=== PATIENT | female | born 1985 ===

== ENCOUNTER 2018-11-08 18:43 | Emergency (ER) | payer MEDICAID ==
[2018-11-08 19:08] VITALS: BP 130/82; PULSE 98; RESP 22; TEMP 98; O2SAT 99
--- NOTE | 2018-11-08 20:18 | C.PDOC ---
History Of Present Illness 33 y/o female presents to the ED for evaluation of cough, runny nose, body aches, nausea, and subjective fever since yesterday. She reports +sick contact in a relative recently diagnosed with flu, as well as child in the ER with same symptoms. No vomiting or diarrhea. No recent travel. LMP was 2 weeks ago. Time Seen by Provider: 11/08/18 19:25 Chief Complaint (Nursing): GI Problem History Per: Patient History/Exam Limitations: no limitations Onset/Duration Of Symptoms: Days (x 2) Current Symptoms Are (Timing): Still Present Location Of Pain: Diffuse Myalgias Sick Contacts (Context): Family Member(s) Associated Symptoms: Fever, Cough, Myalgias, Nasal Congestion, Nausea Past Medical History Reviewed: Historical Data, Nursing Documentation, Vital Signs Vital Signs: Last Vital Signs Temp 98 F 11/08/18 19:03 Pulse 98 H 11/08/18 19:03 Resp 22 11/08/18 19:03 BP 130/82 11/08/18 19:03 Pulse Ox 99 11/08/18 19:03 - Medical History PMH: No Chronic Diseases Surgical History: No Surg Hx Family History: States: Unknown Family Hx - Social History Hx Tobacco Use: No Hx Alcohol Use: No Hx Substance Use: No - Immunization History Hx Tetanus Toxoid Vaccination: No Hx Influenza Vaccination: No Hx Pneumococcal Vaccination: No Review Of Systems Constitutional: Positive for: Fever, Other (Diffuse body aches) ENT: Positive for: Nose Discharge Cardiovascular: Negative for: Chest Pain Respiratory: Positive for: Cough. Negative for: Shortness of Breath Gastrointestinal: Positive for: Nausea. Negative for: Vomiting, Abdominal Pain, Diarrhea Genitourinary: Negative for: Dysuria, Frequency Musculoskeletal: Negative for: Back Pain Skin: Negative for: Rash Neurological: Negative for: Weakness, Headache Physical Exam - Physical Exam Appears: Non-toxic, No Acute Distress Skin: Normal Color, Warm, Dry Head: Atraumatic, Normacephalic Eye(s): bilateral: Normal Inspection, PERRL, EOMI Ear(s): Bilateral: Normal Oral Mucosa: Moist Throat: Normal (Oropharynx clear), No Erythema, No Exudate Neck: Normal ROM, Supple Chest: Symmetrical Cardiovascular: Rhythm Regular, No Murmur Respiratory: Normal Breath Sounds, No Accessory Muscle Use, No Rhonchi, No Wheezing Gastrointestinal/Abdominal: Soft, No Tenderness, No Distention, No Guarding Extremity: Bilateral: Atraumatic, Normal ROM Neurological/Psych: Oriented x3, Normal Speech ED Course And Treatment O2 Sat by Pulse Oximetry: 99 (RA) Pulse Ox Interpretation: Normal Progress Note: Patient treated empirically with initial dose of Tamiflu as well as Motrin and Zofran in the ER. On reevaluation patient reports improvement and is stable for discharge home. Provided rx for Tamiflu. Patient instructed to follow up with PMD or the clinic. Disposition Counseled Patient/Family Regarding: Diagnosis, Need For Followup, Rx Given - Disposition Disposition: HOME/ ROUTINE Disposition Time: 20:15 Condition: STABLE Additional Instructions: Please follow up with PMD Take medications as directed Increase PO fluids Return to ER if worse Prescriptions: Benzonatate [Tessalon Perles] 100 mg PO QID #20 sgl Ibuprofen [Motrin] 600 mg PO Q6H #20 tab Oseltamivir Cap [Tamiflu] 75 mg PO BID #10 cap Instructions: Flu, Adult (DC) Forms: [employer] (Moz[place]ican) - Clinical Impression Clinical Impression: Influenza-like illness - PA / PLASTIC INJECTION [employer] / Resident Statement MD/DO has reviewed & agrees with the documentation as recorded. - Scribe Statement The provider has reviewed the documentation as recorded by the Eliceo Robledo All medical record entries made by the Eliceo were at my direction and personally dictated by me. I have reviewed the chart and agree that the record accurately reflects my personal performance of the history, physical exam, medical decision making, and the department course for this patient. I have also personally directed, reviewed, and agree with the discharge instructions and disposition.
== END 2018-11-08 20:27 | disposition home or self-care (01) ==
LOC: C.ER 18:43
DX: J11.1 Influenza due to unidentified influenza virus with other respiratory manifestations (principal)